=== PATIENT | male | born 1990 | race Two or more races ===

== ENCOUNTER 2024-05-31 09:37 | Emergency (ER) | payer SELFPAY ==
[2024-05-31 10:31] VITALS: BP 129/73; PULSE 66; RESP 18; TEMP 99.1; BMI 30.7
[2024-05-31] MEDS ORDERED: KETOROLAC TROMETHAMINE 30 MG/1 ML VIAL ONE (10:36)
[2024-05-31] MEDS: KETOROLAC TROMETHAMINE 30 MG/1 ML VIAL IM ONE (10:42)
== END 2024-05-31 11:19 | disposition home or self-care (01) ==
LOC: JER 09:37
PROC: 3E0233Z Introduction of Anti-inflammatory into Muscle, Percutaneous Approach (ICD-10-PCS; principal; 2024-05-31)
DX: J10.1 Influenza due to other identified influenza virus with other respiratory manifestations (principal); R51.9 Headache, unspecified; R05.9 Cough, unspecified; R50.9 Fever, unspecified; M79.10 Myalgia, unspecified site
CPT/HCPCS: 0241U-QW; 87651; 99284-25